=== PATIENT | male | born 1975 | race Caucasian/White ===

== ENCOUNTER 2020-11-19 11:43 | Emergency (ER) | payer OTHER ==
--- NOTE | 2020-11-19 11:58 | NUR ---
PT STATES CHEST BEGAN ABOUT A WEEK AGO WHERE HIS CHEST IN BURNING ACROSS CHEST WITH LEFT ARM PAIN. PT THEN HAD TO LEAN AGAINST THE WALL AND GATHER HIM SELF TOGETHER AND WAITED TELL IT WENT AWAY. SAME THING HAPPENED TODAY AND HIS PCP TOLD HIM TO COME IN TO ED. PT CUREENTLY LYING IN BED WITH A DISCOMFORT IN CHEST. DESCRIBES HAVING SOB RIGHT NOW. PT THINKS HE MIGHT BE HAVING A CT.
[2020-11-19] MEDS ORDERED: ASPIRIN 81 MG TABLET CHEW PO ONE (12:30)
[2020-11-19] MEDS ORDERED: SODIUM CHLORIDE FLUSH 10ML SYR IVF ONE (12:30)
[2020-11-19] MEDS ORDERED: ASPIRIN 81 MG TABLET CHEW ONE (12:41)
[2020-11-19 12:50] LABS: BASOPHILS % (AUTO) 1 % (0-1); EOSINOPHILS % (AUTO) 3 % (1-7); LYMPHOCYTES % (AUTO) 22 % (22-44); MEAN CORPUSCULAR HEMOGLOBIN 31.4 pg (27.5-34.5); MEAN CORPUSCULAR HGB CONC 34.3 g/dL (33.2-36.2); MEAN PLATELET VOLUME 9.9 fL (7.4-10.4); MONOCYTES % (AUTO) 8 % (2-9); NEUTROPHILS % (AUTO) 66 % (42-75); PLATELET COUNT 205 x10^3/uL (130-400); RED CELL DISTRIBUTION WIDTH 12.9 % (9.4-14.8)
[2020-11-19 12:52] LABS: MD NO
[2020-11-19 12:56] LABS: ALANINE AMINOTRANSFERASE 74 U/L (12-78); ALBUMIN 3.8 g/dL (3.4-5.0); ANION GAP 4 mmol/L (5-15); CALCIUM 8.6 mg/dL (8.5-10.1); CHLORIDE 106 mmol/L (98-107)
[2020-11-19 13:01] LABS: ALKALINE PHOSPHATASE 121 U/L (45-117); BILIRUBIN,TOTAL 0.2 mg/dL (0.2-1.0); CREATININE 1.04 mg/dL (0.7-1.3); TOTAL PROTEIN 7.4 g/dL (6.4-8.2); TROPONIN I < 0.015 ng/mL (0.000-0.045)
[2020-11-19 14:51] LABS: TROPONIN I < 0.015 ng/mL (0.000-0.045)
[2020-11-19 15:21] VITALS: BP 135/97
== END 2020-11-19 15:24 | disposition home or self-care (01) ==
LOC: ED 13:39
DX: R07.2 Precordial pain (principal); I10 Essential (primary) hypertension; R94.31 Abnormal electrocardiogram [ECG] [EKG]
CPT/HCPCS: 36415; 71045; 80053; 83880; 84484; 85025; 93005; 99285

== ENCOUNTER 2020-12-26 04:08 | Emergency (ER) | payer OTHER ==
[~2020-12-26] VITALS: Ht 175.3 cm; Wt 132.9 kg
--- NOTE | 2020-12-26 04:19 | NUR ---
CORN PRESS OPERATOR: EKG DONE IN TRIAGE.
--- NOTE | 2020-12-26 04:51 | NUR ---
PT HAVING EPIGASTRIC/CHEST PAIN. PT STATES HE HAS HISTORY OF GERD AND IS BEEING SEEN BY DR STROUD FOR POSSIBLE NON WORKING STOMACH FLAP. PT IS A DAILY DRINKER (1-2 DRINKS), AND HAS A ENGINEER AND GEOLOGIST WELL AND STATED SHE HAS NOT DIAGNOSED HIM WITH ANYTHING. ONLY MEDICATION IS PROTONIX DAILY, LESVIA PT IS COMPLIANT TOO. PT DRINKING WATER IN ROOM TO RELIEVE PAIN, PT EDUCATED THAT HE MUST STAY NPO UNTIL WE UNDERSTAND WHAT IS GOING ON. PT ON ALL MONITORS, AWAITING ERP EVAL
[2020-12-26] MEDS ORDERED: MAALOX/HYOSCYAMINE/LIDOCAINE 45 ML BTL ONE (05:26)
[2020-12-26] MEDS ORDERED: MAALOX/HYOSCYAMINE/LIDOCAINE 45 ML BTL PO ONE (05:30)
[2020-12-26] MEDS ORDERED: SODIUM CHLORIDE FLUSH 10ML SYR IVF ONE (05:30)
--- NOTE | 2020-12-26 05:45 | NUR ---
PT MEDICATED PER EMAR, LABS DRAWN AND PIV PLACED, CXR TAKEN. NO OTHER NEEDS AT THIS TIME. PT ON ALL MONITORS, VSS
[2020-12-26 05:49] LABS: BASOPHILS % (AUTO) 1 % (0-1); EOSINOPHILS % (AUTO) 3 % (1-7); LYMPHOCYTES % (AUTO) 33 % (22-44); MEAN CORPUSCULAR HEMOGLOBIN 31.2 pg (27.5-34.5); MEAN CORPUSCULAR HGB CONC 34.3 g/dL (33.2-36.2); MEAN PLATELET VOLUME 9.8 fL (7.4-10.4); MONOCYTES % (AUTO) 15 % (2-9); NEUTROPHILS % (AUTO) 48 % (42-75); PLATELET COUNT 194 x10^3/uL (130-400); RED BLOOD COUNT 5.29 x10^6/uL (4.38-5.82); RED CELL DISTRIBUTION WIDTH 13.1 % (9.4-14.8)
[2020-12-26 05:50] LABS: MD NO
[2020-12-26 05:57] LABS: CHLORIDE 107 mmol/L (98-107)
[2020-12-26 05:58] LABS: ALANINE AMINOTRANSFERASE 77 U/L (12-78); ALBUMIN 3.8 g/dL (3.4-5.0); ANION GAP 5 mmol/L (5-15); CALCIUM 8.5 mg/dL (8.5-10.1)
[2020-12-26 06:02] LABS: ALKALINE PHOSPHATASE 162 U/L (45-117); BILIRUBIN,TOTAL 0.3 mg/dL (0.2-1.0); CREATININE 0.94 mg/dL (0.7-1.3); TOTAL PROTEIN 7.6 g/dL (6.4-8.2); TROPONIN I < 0.015 ng/mL (0.000-0.045)
[2020-12-26 06:18] LABS: HCT (SEDRATE) 48.1 % (39.2-51.8)
--- NOTE | 2020-12-26 06:47 | NUR ---
report given to theresa grubbs. us at bedside
--- NOTE | 2020-12-26 06:48 | NUR ---
Report from ALEX Bergman. Pt connected to monitors, US at bedside.
--- NOTE | 2020-12-26 07:53 | NUR ---
Awaiting echo read. All pt needs met at this time.
[2020-12-26 08:34] VITALS: BP 135/90
== END 2020-12-26 08:48 | disposition home or self-care (01) ==
LOC: ED 06:19
DX: K21.9 Gastro-esophageal reflux disease without esophagitis (principal); R07.89 Other chest pain; K76.0 Fatty (change of) liver, not elsewhere classified; R94.31 Abnormal electrocardiogram [ECG] [EKG]; I10 Essential (primary) hypertension; Z87.891 Personal history of nicotine dependence
CPT/HCPCS: 36415; 71045; 76700; 80053; 83690; 84484; 85025; 85379; 85651; 93005; 93306; 99285

== ENCOUNTER 2021-02-04 08:29 | Observation (INO) | payer OTHER ==
[~2021-02-04] VITALS: Ht 175.3 cm; Wt 136.1 kg
--- NOTE | 2021-02-04 09:00 | NUR ---
STAFF TECHNOLOGIST: EKG DONE IN TRIAGE.
--- NOTE | 2021-02-04 10:02 | NUR ---
PROTECTION AGENT: PT TO ROOM FROM LOBBY
--- NOTE | 2021-02-04 10:14 | NUR ---
Pt able to change into hospital gown and position self for comfort in bed indepentently, all safety measures observed. When attempting to gain clinical and physical assessment pt reports "I can't talk right now"
[2021-02-04 10:22] LABS: BASOPHILS % (AUTO) 0 % (0-1); EOSINOPHILS % (AUTO) 0 % (1-7); LYMPHOCYTES % (AUTO) 8 % (22-44); MEAN CORPUSCULAR HEMOGLOBIN 30.8 pg (27.5-34.5); MEAN CORPUSCULAR HGB CONC 34.2 g/dL (33.2-36.2); MEAN PLATELET VOLUME 10.1 fL (7.4-10.4); MONOCYTES % (AUTO) 6 % (2-9); NEUTROPHILS % (AUTO) 86 % (42-75); PLATELET COUNT 252 x10^3/uL (130-400); RED BLOOD COUNT 5.29 x10^6/uL (4.38-5.82); RED CELL DISTRIBUTION WIDTH 13.1 % (9.4-14.8)
--- NOTE | 2021-02-04 10:22 | NUR ---
Pt now consenting to physical assessment and VS assessment as well as CXR (he had initially refused CXR). Pt reports "lung spasms" for over two months, seen here multiple times for same as well as by risk management director and his PCP. Pt reports intermittent sharp pain with breathing that radiates to his L arm and up his neck. Pt reports during episodes "I can't move. I can't talk. I just have to hold my breath and clamp down my lungs." Continuous heart, oxygen and BP Monitors applied, all safety measures observed.
[2021-02-04] MEDS ORDERED: OXYC-380 PO (10:31)
[2021-02-04] MEDS ORDERED: CYCL10TA2 PO (10:31)
--- NOTE | 2021-02-04 10:36 | NUR ---
Pt to xray at this time.
--- NOTE | 2021-02-04 10:42 | NUR ---
Pt back from xray, resting in bed, LILIA. microbiological lab technician at bedside.
--- NOTE | 2021-02-04 10:44 | NUR ---
resident at bedside to evaluate pt.
[2021-02-04 11:19] LABS: ALANINE AMINOTRANSFERASE 61 U/L (12-78); ALBUMIN 3.7 g/dL (3.4-5.0); ANION GAP 9 mmol/L (5-15); CALCIUM 9.2 mg/dL (8.5-10.1); CHLORIDE 101 mmol/L (98-107); CREATININE 1.09 mg/dL (0.7-1.3)
[2021-02-04 11:21] LABS: ALKALINE PHOSPHATASE 159 U/L (45-117); BILIRUBIN,TOTAL 0.4 mg/dL (0.2-1.0); TOTAL PROTEIN 7.3 g/dL (6.4-8.2)
[2021-02-04 11:21] LABS: TROPONIN I 0.079 ng/mL (0.000-0.045)
--- NOTE | 2021-02-04 11:33 | NUR ---
Pt resting in bed, looking at his phone, LILIA, denies needs.
[2021-02-04] MEDS ORDERED: NITROGLYCERIN OINT 2%, 1GM TP ONE ×2 (11:43→12:24)
[2021-02-04] MEDS ORDERED: ASPIRIN 325 MG TABLET PO ONE (11:44)
--- NOTE | 2021-02-04 12:11 | NUR ---
Pt currently in CT.
[2021-02-04] MEDS ORDERED: ASPIRIN 325 MG TABLET ONE (12:24)
[2021-02-04] MEDS ORDERED: OMNIPAQUE 350 MG/ML, 100ML BOTTLE ONE (12:30)
--- NOTE | 2021-02-04 12:34 | NUR ---
Pt medicated per MAR, POC discussed. Pt denies other needs.
--- NOTE | 2021-02-04 12:45 | NUR ---
Dr. Castellano at bedside to discuss POC.
--- NOTE | 2021-02-04 12:48 | NUR ---
Pt ambulatory to bathroom and back to bed without difficulty.
[2021-02-04] MEDS ORDERED: ONDANSETRON ODT 4 MG PO PRN (13:30)
[2021-02-04] MEDS ORDERED: ACETAMINOPHEN 325 MG TABLET PO PRN (13:30)
[2021-02-04] MEDS ORDERED: MORPHINE SULFATE 4 MG/ML, 1ML IVPush PRN (13:30)
[2021-02-04] MEDS ORDERED: NITROGLYCERIN 0.4 MG BOTTLE (25 TABS) SL PRN (13:30)
[2021-02-04] MEDS ORDERED: MAALOX/HYOSCYAMINE/LIDOCAINE 45 ML BTL PO ONE (13:30)
[2021-02-04] MEDS ORDERED: ONDANSETRON 2MG/ML, 2ML IVPush PRN (13:30)
--- NOTE | 2021-02-04 13:43 | NUR ---
Pt resting in bed watching TV, NADN, denies needs.
[2021-02-04 13:46] LABS: TROPONIN I 0.083 ng/mL (0.000-0.045)
--- NOTE | 2021-02-04 13:48 | NUR ---
Report called to Trista JOHNSON on card tele. Floor ready for pt transport.
[2021-02-04 14:13] VITALS: BP 134/90
[2021-02-04] MEDS ORDERED: PANT40TA6 PO (14:24)
[2021-02-04] MEDS ORDERED: IBUP-1222 PO (14:24)
[2021-02-04] MEDS: HEPARIN 5,000 UNITS/ML, 1ML SQ SCH ×2 (14:38→21:37)
[2021-02-04] MEDS: SODIUM CHLORIDE 0.9% 1,000 ML IV SCH (14:38)
[2021-02-04] MEDS: metFORMIN 850 MG TABLET PO SCH (17:36)
[2021-02-04] MEDS: INSULIN LISPRO 100 UNITS/ML, PEN SQ-INSULIN SCH ×2 (17:37→20:19)
[2021-02-04 19:19] VITALS: BP 122/82
[2021-02-04 19:40] LABS: TROPONIN I 0.089 ng/mL (0.000-0.045)
[2021-02-04] MEDS: LACTOBACILLUS CHEW TABLET PO SCH (20:13)
[2021-02-04] MEDS ORDERED: ATORVASTATIN 40 MG TABLET PO SCH (21:00)
[2021-02-05] MEDS: SODIUM CHLORIDE 0.9% 1,000 ML IV SCH (02:32)
[2021-02-05 04:10] VITALS: BP 145/87
[2021-02-05] MEDS: HEPARIN 5,000 UNITS/ML, 1ML SQ SCH ×2 (04:42→13:30)
[2021-02-05 05:24] LABS: BASOPHILS % (AUTO) 0 % (0-1); EOSINOPHILS % (AUTO) 0 % (1-7); LYMPHOCYTES % (AUTO) 12 % (22-44); MEAN PLATELET VOLUME 9.8 fL (7.4-10.4); MONOCYTES % (AUTO) 6 % (2-9); NEUTROPHILS % (AUTO) 82 % (42-75); PLATELET COUNT 254 x10^3/uL (130-400); RED BLOOD COUNT 5.05 x10^6/uL (4.38-5.82); RED CELL DISTRIBUTION WIDTH 13.1 % (9.4-14.8)
[2021-02-05 05:33] LABS: ANION GAP 5 mmol/L (5-15); CALCIUM 8.3 mg/dL (8.5-10.1); CHLORIDE 103 mmol/L (98-107)
[2021-02-05 05:35] LABS: CREATININE 0.95 mg/dL (0.7-1.3)
[2021-02-05] MEDS ORDERED: PANTOPRAZOLE 40MG TABLET PO SCH (06:00)
[2021-02-05] MEDS ORDERED: ASPIRIN 325 MG TABLET EC PO SCH (06:00)
[2021-02-05] MEDS: INSULIN LISPRO 100 UNITS/ML, PEN SQ-INSULIN SCH ×2 (07:00→11:00)
[2021-02-05 07:26] VITALS: BP 135/90
[2021-02-05] MEDS ORDERED: REGADENOSON 0.4 MG/5 ML SYRINGE ONE ×2 (08:06→08:08)
[2021-02-05] MEDS: metFORMIN 850 MG TABLET PO SCH (10:24)
[2021-02-05] MEDS: LACTOBACILLUS CHEW TABLET PO SCH (10:24)
[2021-02-05 12:49] VITALS: BP 152/85
[2021-02-05] MEDS ORDERED: SODIUM CHLORIDE 0.9% 1,000 ML IV SCH (13:30)
[2021-02-05] MEDS ORDERED: ACID1TAB7 PO (13:38)
[2021-02-05] MEDS ORDERED: ALBU18HF PO (13:38)
[2021-02-05] MEDS ORDERED: INSU100I11 SQ-INSULIN (13:38)
[2021-02-05] MEDS ORDERED: METF850T PO (13:38)
== END 2021-02-05 16:18 | disposition home or self-care (01) ==
LOC: ED 10:12 → EDIP 12:28 → INTOOBSV 12:28 → 5SO 14:11 → DCLOUNGE 02-05 16:07
PROVIDERS: ADMIT Family Medicine; ATTEND Family Medicine
DX: R07.89 Other chest pain (principal); R06.00 Dyspnea, unspecified; I10 Essential (primary) hypertension; E11.9 Type 2 diabetes mellitus without complications; G47.30 Sleep apnea, unspecified; E66.01 Morbid (severe) obesity due to excess calories; R79.89 Other specified abnormal findings of blood chemistry; Z87.891 Personal history of nicotine dependence; Z79.899 Other long term (current) drug therapy
CPT/HCPCS: 36415; 71046; 71275; 78452; 80048; 80053; 82962; 83036; 84484; 85025; 93005; 93017; 96361; 96372; 96374; 99285; A9502; G0378; J1644; J1815; J2405; J2785; J7030; Q9967